=== PATIENT | female | born 1950 | race Caucasian/White ===

== ENCOUNTER 2018-06-08 14:43 | Emergency (ER) | payer OTHER ==
[~2018-06-08] VITALS: Ht 160 cm; Wt 77.1 kg
[2018-06-08] MEDS ORDERED: METFORMIN HCL500 MG PO (15:02)
[2018-06-08] MEDS ORDERED: LISINOPRIL5 MG PO (15:02)
[2018-06-08] MEDS ORDERED: ASPIR 8181 MG PO (15:03)
[2018-06-08 15:59] VITALS: BP 139/84
== END 2018-06-08 15:59 | disposition home or self-care (01) ==
LOC: M.ERS 14:43
DX: S61.211A Laceration without foreign body of left index finger without damage to nail, initial encounter (principal); I10 Essential (primary) hypertension; Z90.49 Acquired absence of other specified parts of digestive tract; Z90.710 Acquired absence of both cervix and uterus; Z88.0 Allergy status to penicillin; W26.0XXA Contact with knife, initial encounter; Y93.89 Activity, other specified; Y92.89 Other specified places as the place of occurrence of the external cause; Y99.8 Other external cause status

== ENCOUNTER 2020-06-23 04:04 | Emergency (ER) | payer OTHER ==
[~2020-06-23] VITALS: Ht 160 cm; Wt 77.1 kg
[~2020-06-23 04:04] MED LIST: ASPIR 8181 MG PO; LISINOPRIL5 MG PO; METFORMIN HCL500 MG PO
[2020-06-23] MEDS ORDERED: INDOMETHACIN SR75 M1 PO (04:29)
[2020-06-23 04:37] LABS: ABSOLUTE BASOPHILS 0.1 thou/uL (0.0-0.2); ABSOLUTE EOSINOPHILS 0.2 thou/uL (0.0-0.7); ABSOLUTE LYMPHOCYTES 2.5 thou/uL (0.8-5.3); ABSOLUTE MONOCYTES 1.5 thou/uL (0.0-1.2); ABSOLUTE NEUTROPHILS 11.2 thou/uL (1.6-8.1); BASOPHILS 0.4 %; EOSINOPHILS 1.1 %; HEMATOCRIT 53.6 % (37.0-47.0); HEMOGLOBIN 17.7 gm/dL (12.0-15.0); MCH 29.1 pg (26.0-34.0); MCHC 32.9 g/dL (28.0-37.0); MCV 88.3 fL (80.0-100.0); MONOCYTES 9.9 %; MPV 7.6 fl. (7.2-11.1); NUCLEATED RBCS 0 /100WBC; PLATELET COUNT* 351 thou/uL (150-400); POLYS 72.6 %; RBC 6.07 mil/uL (4.20-5.00); RDW-CV 13.8 % (10.5-14.5); WBC 15.4 thou/uL (4.0-11.0)
[2020-06-23 04:49] LABS: CALCIUM 9.1 mg/dL (8.5-10.1); POTASSIUM 4.8 mmol/L (3.5-5.1)
[2020-06-23 04:50] LABS: INR 1.1; PROTIME 11.2 Seconds (9.20-11.50)
[2020-06-23 04:59] LABS: ALBUMIN 3.3 g/dL (3.4-5.0); TOTAL BILIRUBIN 0.6 mg/dL (<0.1-1.0); TOTAL PROTEIN 7.5 g/dL (6.4-8.2)
[2020-06-23 06:34] LABS: URINE BLOOD NEGATIVE (Negative); URINE CLARITY CLEAR; URINE COLOR YELLOW; URINE GLUCOSE-RANDOM 2+ (Negative); URINE KETONES TRACE (Negative); URINE LEUKOCYTES-REFLEX NEGATIVE (Negative); URINE NITRITE-REFLEX NEGATIVE (Negative); URINE PROTEIN 1+ (Negative); URINE SPECIFIC GRAVITY >= 1.030 (1.005-1.030); URINE UROBILINOGEN 0.2 E.U./dl (0.2-1.0)
[2020-06-23 06:36] LABS: ICTOTEST (BILI CONFIRMATORY) Negative (Negative); URINE BILIRUBIN 1+ (Negative)
[2020-06-23] MEDS ORDERED: PREDNISONE50 MG PO (06:52)
[2020-06-23] MEDS ORDERED: ZOFRAN ODT4 MG PO (06:52)
[2020-06-23 07:44] VITALS: BP 111/51
--- NOTE | 2020-06-23 08:56 | EKG ---
[place] [address] ELECTROCARDIOGRAM REPORT Name: SWAPNIL ROMERO Room: [facility]#: [id number] Admission: 06/23/20 Attend Phys: Discharge: 06/23/20 Date of : 52 Date of Service: 06/23/20 0418 Report #: [id number] THIS REPORT FOR: //name// [facility] ED Test Date: 2020-06-23 Test Time: 04:18:18 Pat Name: SWAPNIL ROMERO Department: Room: Gender: F [employer] Equipment: [place] : 1950 Requested By: Mili Brink Order Number: [id number] MD: Christophe Rosario Measurements Intervals [place] Rate: 107 P: 48 [place]: 163 QRS: -36 QRSD: 79 T: 53 QT: 324 QTc: 433 Interpretive Statements Sinus tachycardia Inferior infarct, old Baseline wander in lead(s) II No previous ECG available for comparison Electronically Signed On 06-23-2020 8:56:27 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
== END 2020-06-23 07:45 | disposition home or self-care (01) ==
LOC: M.ERS 04:04
PROVIDERS: Emergency Medicine
DX: S00.83XA Contusion of other part of head, initial encounter (principal); T78.40XA Allergy, unspecified, initial encounter; X58.XXXA Exposure to other specified factors, initial encounter; R55 Syncope and collapse; I10 Essential (primary) hypertension; Z88.0 Allergy status to penicillin; Z90.710 Acquired absence of both cervix and uterus; W18.30XA Fall on same level, unspecified, initial encounter; Y93.89 Activity, other specified; Y92.091 Bathroom in other non-institutional residence as the place of occurrence of the external cause; Y99.8 Other external cause status